=== PATIENT | female | born 1960 | race Caucasian/White ===

== ENCOUNTER → 2018-03-02 09:30 | Outpatient (CLI) | payer OTHER, SELFPAY ==
[2018-03-02 10:42] LABS: BUN Creatinine Ratio 15.6 (6-22); Calcium 9.4 mg/dL (8.4-10.2); Cholesterol 222 mg/dL (140-199); Estimated Glomerular Filt Rate > 60.0 mL/min (>60); Glucose 103 mg/dL (70-100); HDL Cholesterol 36 mg/dL (40-60); HEMOLYSIS < 15 (0-50); LDL Cholesterol Calculated 143 mg/dL (<100); Potassium 3.8 mmol/L (3.4-5.1); Sodium 142 mmol/L (137-145); Triglycerides 213 mg/dL (35-150)
== END ==
PROVIDERS: Family Provider Internal Medicine; PCP Internal Medicine; Visit Provider Internal Medicine
DX: Z00.00 Encounter for general adult medical examination without abnormal findings (principal)
CPT/HCPCS: 36415; 80048; 80061

== ENCOUNTER → 2019-01-23 12:57 | Outpatient (CLI) | payer OTHER, SELFPAY ==
--- NOTE | 2019-01-23 | DI.US.S_ITS ---
LIMITED ULTRASOUND OF LEFT BREAST AND AXILLA: 01/23/2019 CLINICAL: LEFT breast firmness. Comparison is made to exams dated: 01/23/2019 mammogram, 04/01/2017 mammogram, 02/05/2016 mammogram, 12/31/2014 mammogram, and 12/28/2013 mammogram - [facility]. Ultrasound of the left breast 11-1 o'clock, retroareolar, and axilla regions was performed. No abnormalities were seen sonographically in the left breast. A benign axillary lymph node was seen. IMPRESSION: NEGATIVE There is no sonographic evidence of malignancy. No sonographic or mammographic findings to explain patient's symptoms of firmness and pain. Clinical follow up for symptoms is recommended. Return to annual mammogram screening schedule is recommended. Findings and recommendations were conveyed to the patient. This exam was interpreted at Station ID: [id number]. Electronically Signed By: Kyra gusman/:01/23/2019 15:03:23 letter sent: Normal Exam Ultrasound BI-RADS: 1 Negative
--- NOTE | 2019-01-23 | DI.MG.S_ITS ---
BILATERAL DIGITAL DIAGNOSTIC MAMMOGRAM 3D/2D POST LUMPECTOMY: 01/23/2019 CLINICAL: Left breast pain. Comparison is made to exams dated: 04/01/2017 mammogram, 02/05/2016 mammogram, and 12/31/2014 mammogram - [facility]. There are scattered fibroglandular elements in both breasts. The lumpectomy bed with surgical clips in the upper outer left breast is involuting and the overlying skin is slightly retracting, expected changes. No new mass. The patient's area of firmness in the 11 o'clock mid depth has no mammographic correlate. NO suspicious findings in the retroareaolar area of pain. Stable ovoid nodule in the right breast, unchanged over multiple prior studies. No significant masses, calcifications, or other findings are seen in either breast. IMPRESSION: INCOMPLETE: NEEDS ADDITIONAL IMAGING EVALUATION Benign findings of left breast lumpectomy. No mammographic evidence of malignancy. No mammographic correlate to explain patient's symptoms. Further evaluation with ultrasound is recommended and was immediately performed following this study. This exam was interpreted at Station ID: [id number]. NOTE: For mammograms, a report in lay terms will be sent to the patient. Approximately 15% of breast malignancies will not be visualized mammographically. In the management of a palpable breast mass, a negative mammogram must not discourage biopsy of a clinically suspicious lesion. Electronically Signed By: Kyra gusman/:01/23/2019 14:47:59 ACR BI-RADS Category 0: Incomplete 3340F
== END ==
PROVIDERS: Family Provider Internal Medicine; PCP Internal Medicine; Visit Provider Internal Medicine
DX: R92.8 Other abnormal and inconclusive findings on diagnostic imaging of breast (principal); N64.4 Mastodynia
CPT/HCPCS: 76642; 77066; G0279

== ENCOUNTER → 2019-05-02 10:14 | Outpatient (CLI) | payer OTHER, SELFPAY ==
--- NOTE | 2019-05-02 | DI.RAD.S_ITS ---
PROCEDURE: XR KNEE LT 3V INDICATIONS: ARTHROPATHY TECHNIQUE: 3 views of the knee were acquired. COMPARISON: None. FINDINGS: Bones: No fractures or dislocations. No suspicious bony lesions. Soft tissues: No joint effusion. No suspicious soft tissue calcifications. IMPRESSION: Unremarkable radiographic examination of left knee. Dictated by: Wilver Xiong M.D. on 05/02/2019 at 12:07 Approved by: Wilver Xiong M.D. on 05/02/2019 at 12:07
--- NOTE | 2019-05-02 | DI.RAD.S_ITS ---
PROCEDURE: XR HAND LT MIN 3V INDICATIONS: ARTHROPATHY TECHNIQUE: 3 views of the hand(s) acquired. COMPARISON: None. FINDINGS: Bones: No fractures or dislocations. Mild osteophytic changes along radial aspect of left wrist and throughout interphalangeal joints are seen more prominent at first CMC joint. No gross bony erosive changes. Carpal bones are normally aligned. No suspicious bony lesions. Soft tissues: No suspicious soft tissue calcifications. 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 No bony erosive changes. No fracture or dislocation. Dictated by: Wilver Xiong M.D. on 05/02/2019 at 12:11 Approved by: Wilver Xiong M.D. on 05/02/2019 at 12:16
--- NOTE | 2019-05-02 | DI.RAD.S_ITS ---
PROCEDURE: XR HAND RT MIN 3V INDICATIONS: ARTHROPATHY TECHNIQUE: 3 views of the hand(s) acquired. COMPARISON: None. FINDINGS: Bones: No fractures or dislocations. Mild osteophytic changes along radial aspect of right wrist and hand are seen with joint space narrowing and subchondral sclerosis. Very mild second through fifth PIP and DIP joint space narrowing is also noted. No definite bony erosive changes. Carpal bones are normally aligned. No suspicious bony lesions. Soft tissues: No suspicious soft tissue calcifications. IMPRESSION: Mild osteoarthritic changes in right hand and wrist. No definite bony erosive changes. Dictated by: Wilver Xiong M.D. on 05/02/2019 at 12:07 Approved by: Wilver Xiong M.D. on 05/02/2019 at 12:08
--- NOTE | 2019-05-02 | DI.RAD.S_ITS ---
PROCEDURE: XR FOOT RT MIN 3V INDICATIONS: ARTHROPATHY TECHNIQUE: 3 views of the foot were acquired. COMPARISON: None. FINDINGS: Bones: Moderate hallux valgus is seen. Mild first MTP joint and first through fifth interphalangeal joint osteophytic changes are seen with joint space narrowing and subchondral sclerosis. No bony erosive changes. No fractures or dislocations. No suspicious bony lesions. Soft tissues: No tibiotalar joint effusion. Achilles tendon appears normal. IMPRESSION: Moderate hallux valgus and mild forefoot joint osteoarthritis. No fracture or dislocation. No bony erosive changes. Dictated by: Wilver Xiong M.D. on 05/02/2019 at 12:09 Approved by: Wilver Xiong M.D. on 05/02/2019 at 12:10
--- NOTE | 2019-05-02 | DI.RAD.S_ITS ---
PROCEDURE: XR FOOT LT MIN 3V INDICATIONS: ARTHROPATHY TECHNIQUE: 3 views of the foot were acquired. COMPARISON: None. FINDINGS: Bones: Moderate hallux valgus is seen. Moderate first MTP joint osteoarthritis and mild first through fifth interphalangeal joint osteoarthritis is seen. No gross bone erosive changes. No fractures or dislocations. No suspicious bony lesions. Soft tissues: No tibiotalar joint effusion. Achilles tendon appears normal. IMPRESSION: Moderate hallux valgus and mild to moderate forefoot osteoarthritis. No bony erosive changes. No fracture or dislocation. Dictated by: Wilver Xiong M.D. on 05/02/2019 at 12:10 Approved by: Wilver Xiong M.D. on 05/02/2019 at 12:11
--- NOTE | 2019-05-02 | DI.RAD.S_ITS ---
PROCEDURE: XR KNEE RT 3V INDICATIONS: ARTHROPATHY TECHNIQUE: 3 views of the knee were acquired. COMPARISON: None. FINDINGS: Bones: No fractures or dislocations. No suspicious bony lesions. Joint spaces are fairly well preserved for patient's age. Soft tissues: No joint effusion. No suspicious soft tissue calcifications. IMPRESSION: Unremarkable radiographic examination of right knee. Dictated by: Wilver Xiong M.D. on 05/02/2019 at 12:08 Approved by: Wilver Xiong M.D. on 05/02/2019 at 12:09
[2019-05-02 11:22] LABS: Add Manual Diff / Slide Review NO; Basophils Absolute Auto 100 /uL (0-100); Basophils Percent Auto 0.9 % (0-2); Eosinophils Absolute Auto 100 /uL (0-450); Eosinophils Percent Auto 1.8 % (2-4); Hematocrit 42.1 % (36-46); Hemoglobin 14.1 g/dL (12.0-16.0); Lymphocytes Absolute Auto 2400 /uL (1100-4500); Lymphocytes Percent Auto 30.7 % (25-40); Mean Corpuscular HGB Conc 33.6 % (30-36); Mean Corpuscular Hemoglobin 31.6 PG (26-34); Mean Corpuscular Volume 94.1 fL (80-100); Monocytes Absolute Auto 500 /uL (0-900); Monocytes Percent Auto 6.6 % (3-14); Neutrophils Absolute Auto 4600 /uL (1500-7000); Platelet Count 391 X10^3/uL (150-400); Red Blood Cell Count 4.47 X10^6/uL (4.0-5.2); Red Cell Distribution Width 13.8 % (11.6-14.8); White Blood Cell Count 7.7 X10^3/uL (4.5-11.0)
[2019-05-02 11:43] LABS: Erythrocyte Sedimentation Rate 30 MM/HR (0-20)
[2019-05-02 11:57] LABS: Alanine Aminotransferase 24 IU/L (9-52); Albumin 4.7 g/dL (3.5-5.0); Albumin Globulin Ratio 1.4 (1.0-2.8); Alkaline Phosphatase 103 U/L (38-126); Aspartate Aminotransferase 28 IU/L (14-36); Bilirubin Total 0.4 mg/dL (0.2-1.3); Blood Urea Nitrogen 14 mg/dL (7-17); C-Reactive Protein Quant 0.8 mg/dL (<1.0); Calcium 10.2 mg/dL (8.4-10.2); Carbon Dioxide 29 mmol/L (22-32); Chloride 102 mmol/L (98-107); Estimated Glomerular Filt Rate > 60.0 mL/min (>60); Globulin 3.3 g/dL (1.7-4.1); Glucose 97 mg/dL (70-100); HEMOLYSIS < 15 (0-50); Potassium 4.9 mmol/L (3.4-5.1); Sodium 142 mmol/L (137-145)
[2019-05-02 11:58] LABS: Rheumatoid Factor 10.4 IU/mL (<12.0)
[2019-05-07 10:42] LABS: CCP Antibodies IgG/IgA 3
== END ==
PROVIDERS: Family Provider Internal Medicine; PCP Internal Medicine; Visit Provider Internal Medicine Rheumatology
DX: M19.072 Primary osteoarthritis, left ankle and foot (principal); M19.071 Primary osteoarthritis, right ankle and foot; M20.12 Hallux valgus (acquired), left foot; M20.11 Hallux valgus (acquired), right foot; M18.12 Unilateral primary osteoarthritis of first carpometacarpal joint, left hand; M19.042 Primary osteoarthritis, left hand; M19.032 Primary osteoarthritis, left wrist
CPT/HCPCS: 36415; 73130; 73562; 73630; 80053; 83516; 84550; 85025; 85651; 86140; 86200; 86430

== ENCOUNTER → 2019-07-27 09:37 | Outpatient (CLI) | payer OTHER, SELFPAY ==
--- NOTE | 2019-07-27 | DI.MRI.S_ITS ---
PROCEDURE: MR FOOT RT WO/W CON INDICATIONS: Primary osteoarthritis. Right foot and lower extremity pain TECHNIQUE: Noncontrast sagittal T1 spin echo and T2 fast spin echo with fat saturation, long-axis T1 spin echo and T2 fast spin echo with fat saturation; short-axis T1 spin echo, proton density fast spin echo, and T2 fast spin echo with fat saturation through the forefoot. Post-contrast short axis, long axis, and sagittal T1 spin echo with fat saturation through the forefoot. COMPARISON: [facility], CR, XR FOOT LT MIN 3V, 05/02/2019, 10:40. [facility], MR, MR FOOT LT WO/W CON, 07/27/2019, 9:52. FINDINGS: Image quality: Excellent. Bones and joints: Moderate hallux valgus is seen. Mild to moderate first MTP joint osteoarthritis is seen. Mild osteoarthritic changes also noted in first through fifth interphalangeal joints with joint space narrowing and subchondral sclerosis. No marrow edema. No fracture or dislocation. Osteoarthritic changes also noted between first metatarsal head and sesamoid bones. There are T2 hyperintense areas involving medial cortex of first metatarsal head as well as plantar periphery of first metatarsal head, shows mild contrast enhancement in these areas concerning for erosive changes in first metatarsal head. No other area of bony erosive changes are seen. No stress fracture is noted. Soft tissues: No suspicious soft tissue enhancement. The visualized plantar foot muscles demonstrate normal signal and bulk. Visualized flexor and extensor tendons appear intact, without tenosynovitis. The distal insertions of the peroneus brevis and longus tendons appear intact. The principal Lisfranc ligament appears intact. No soft tissue ganglion cysts or bursal fluid collections. Sagittal images demonstrate no evidence for plantar plate tears. IMPRESSION: 1. Moderate hallux valgus and mild to moderate first MTP joint osteoarthritis. Mild first through fifth interphalangeal joint osteoarthritis. No fracture or dislocation. 2. Suggestion of subtle erosive changes involving plantar and medial periphery of first metatarsal head, no adjacent soft tissue mass or fluid. 3. No evidence of tenosynovitis in forefoot tendons. No area of abnormal soft tissue enhancement. Dictated by: Wilver Xiong M.D. on 07/27/2019 at 14:21 Approved by: Wilver Xiong M.D. on 07/27/2019 at 14:28
--- NOTE | 2019-07-27 | DI.MRI.S_ITS ---
PROCEDURE: MR FOOT LT WO/W CON INDICATIONS: OSTEOARTHIRTIS TECHNIQUE: Noncontrast sagittal T1 spin echo and T2 fast spin echo with fat saturation, long-axis T1 spin echo and T2 fast spin echo with fat saturation; short-axis T1 spin echo, proton density fast spin echo, and T2 fast spin echo with fat saturation through the forefoot. Post-contrast short axis, long axis, and sagittal T1 spin echo with fat saturation through the forefoot. COMPARISON: [facility], CR, XR FOOT LT MIN 3V, 05/02/2019, 10:40. FINDINGS: Image quality: Excellent. Bones and joints: Mild to moderate hallux valgus is seen. Mild to moderate osteoarthritic changes throughout forefoot joints are also noted most prominent involving first MTP joint. T2 hyperintense signal over medial cortex of first metatarsal head is seen with mild contrast enhancement and most consistent with erosive changes in this area. No other area of abnormal intraosseous enhancement. No marrow edema. No metatarsal stress fracture. The sesamoid bones appear in expected positions, without internal edema. Soft tissues: No suspicious soft tissue enhancement. The visualized plantar foot muscles demonstrate normal signal and bulk. Visualized flexor and extensor tendons appear intact, without tenosynovitis. The distal insertions of the peroneus brevis and longus tendons appear intact. The principal Lisfranc ligament appears intact. No soft tissue ganglion cysts or bursal fluid collections. Sagittal images demonstrate no evidence for plantar plate tears. IMPRESSION: 1. Mild to moderate hallux valgus and first MTP joint osteoarthritis. Mild osteoarthritis throughout the interphalangeal joints. Suggestion of subtle bony erosion involving medial cortex of first metatarsal head. No other area of bone erosion is seen. 2. No abnormal soft tissue enhancement or fluid collection. No signs of tenosynovitis is seen in flexor and extensor tendons. Dictated by: Wilver Xiong M.D. on 07/27/2019 at 14:13 Approved by: Wilver Xiong M.D. on 07/27/2019 at 14:19
== END ==
PROVIDERS: Family Provider Internal Medicine; PCP Internal Medicine; Visit Provider Internal Medicine Rheumatology
DX: M19.072 Primary osteoarthritis, left ankle and foot (principal); M19.071 Primary osteoarthritis, right ankle and foot; M20.12 Hallux valgus (acquired), left foot; M20.11 Hallux valgus (acquired), right foot
CPT/HCPCS: 73720; A9579

== ENCOUNTER → 2019-08-01 15:51 | Outpatient (ROUT) | payer OTHER, SELFPAY ==
[2019-08-01 16:19] LABS: BUN Creatinine Ratio 16.3 (6-22); Blood Urea Nitrogen 13 mg/dL (7-17); Calcium 10.1 mg/dL (8.4-10.2); Carbon Dioxide 30 mmol/L (22-32); Chloride 103 mmol/L (98-107); Estimated Glomerular Filt Rate > 60.0 mL/min (>60); Glucose 87 mg/dL (70-100); HEMOLYSIS < 15 (0-50); Potassium 4.4 mmol/L (3.4-5.1); Sodium 140 mmol/L (137-145)
[2019-08-01 17:34] LABS: TSH w/ Reflex to FT4 3.56 uIU/mL (0.47-4.68)
== END ==
PROVIDERS: Family Provider Internal Medicine; PCP Internal Medicine; Visit Provider Internal Medicine
DX: R07.9 Chest pain, unspecified (principal)
CPT/HCPCS: 80048; 84443

== ENCOUNTER → 2020-06-11 11:53 | Outpatient (CLI) | payer OTHER, SELFPAY ==
--- NOTE | 2020-06-11 12:03 | DI.MG.S_ITS ---
Patient Name: JACINTA BARNETT date: 1960 Sex: F Attending Physician: Kd Indications: Date: 06/11/2020 11:56 At the request of: JENNIFER CARBAJAL Procedure: MM screening mammo BI BILATERAL DIGITAL SCREENING MAMMOGRAM 3D/2D WITH CAD POST LUMPECTOMY: 06/11/2020 CLINICAL: Routine screening. Breast cancer. Family history of breast cancer. Comparison is made to exams dated: 01/23/2019 mammogram, 04/01/2017 mammogram, 02/05/2016 mammogram, and 12/31/2014 mammogram - [facility]. There are scattered fibroglandular elements in both breasts. Current study was also evaluated with a Computer Aided Detection (CAD) system. There is a benign mass in the right breast. There also are benign post operative findings and biopsy clip in the left breast. No significant masses, calcifications, or other findings are seen in either breast. There has been no significant interval change. IMPRESSION: BENIGN There is no mammographic evidence of malignancy. A 1 year screening mammogram is recommended. This exam was interpreted at Station ID: [id number]. NOTE: For mammograms, a report in lay terms will be sent to the patient. Approximately 15% of breast malignancies will not be visualized mammographically. In the management of a palpable breast mass, a negative mammogram must not discourage biopsy of a clinically suspicious lesion. Electronically Signed By: Abhinav Daly M.D. aty/:06/11/2020 12:33:58 letter sent: Normal Exam ACR BI-RADS Category 2: Benign Finding(s) 3342F
== END ==
PROVIDERS: Family Provider Internal Medicine; PCP Internal Medicine; Referring Provider Internal Medicine; Visit Provider Internal Medicine
DX: Z12.31 Encounter for screening mammogram for malignant neoplasm of breast (principal); Z85.3 Personal history of malignant neoplasm of breast; Z80.3 Family history of malignant neoplasm of breast
CPT/HCPCS: 77063; 77067

== ENCOUNTER → 2020-08-18 12:50 | Outpatient (CLI) | payer OTHER, SELFPAY ==
[2020-08-18 14:29] LABS: Alanine Aminotransferase 25 IU/L (<35); Albumin 4.6 g/dL (3.5-5.0); Albumin Globulin Ratio 1.3 (1.0-2.8); Alkaline Phosphatase 98 U/L (38-126); Aspartate Aminotransferase 32 IU/L (14-36); Bilirubin Total 0.5 mg/dL (0.2-1.3); Blood Urea Nitrogen 13 mg/dL (7-17); C-Reactive Protein Quant 0.6 mg/dL (<1.0); Calcium 9.8 mg/dL (8.4-10.2); Carbon Dioxide 30 mmol/L (22-32); Chloride 104 mmol/L (98-107); Estimated Glomerular Filt Rate > 60.0 mL/min (>60); Globulin 3.6 g/dL (1.7-4.1); Glucose 90 mg/dL (70-100); HEMOLYSIS < 15 (0-50); Potassium 3.7 mmol/L (3.4-5.1); Sodium 140 mmol/L (137-145); Total Protein 8.2 g/dL (6.3-8.2)
[2020-08-18 14:37] LABS: Erythrocyte Sedimentation Rate 27 MM/HR (0-20)
[2020-08-18 14:40] LABS: Add Manual Diff / Slide Review NO; Basophils Absolute Auto 100 /uL (0-100); Basophils Percent Auto 1.1 % (0-2); Eosinophils Absolute Auto 200 /uL (0-450); Eosinophils Percent Auto 1.7 % (2-4); Hematocrit 41.7 % (36-46); Hemoglobin 14.1 g/dL (12.0-16.0); Lymphocytes Absolute Auto 2800 /uL (1100-4500); Lymphocytes Percent Auto 30.4 % (25-40); Mean Corpuscular HGB Conc 33.9 % (30-36); Mean Corpuscular Hemoglobin 31.7 PG (26-34); Mean Corpuscular Volume 93.5 fL (80-100); Monocytes Absolute Auto 500 /uL (0-900); Monocytes Percent Auto 5.5 % (3-14); Neutrophils Absolute Auto 5600 /uL (1500-7000); Neutrophils Percent Auto 61.3 % (50-75); Platelet Count 375 X10^3/uL (150-400); Red Blood Cell Count 4.46 X10^6/uL (4.0-5.2); Red Cell Distribution Width 13.6 % (11.6-14.8); White Blood Cell Count 9.1 X10^3/uL (4.5-11.0)
[2020-08-19 07:17] LABS: Hepatitis B Core AB w/Reflex Negative (Negative); Hepatitis B Surf AB Quant <3.1 mIU/mL (Immunity>9.9)
[2020-08-20 00:18] LABS: QuantiFERON Mitogen Value 9.84 IU/mL (.); QuantiFERON Nil Value 0.14 IU/mL (.); QuantiFERON TB Gold Plus Negative (Negative); QuantiFERON TB1 Ag Value 0.15 IU/mL (.); QuantiFERON TB2 Ag Value 0.14 IU/mL (.)
[2020-08-21 11:13] LABS: Hepatitis Be Antibody Negative (Negative)
[2020-08-21 17:17] LABS: Hepatitis B Surface Antigen NEGATIVE s/c (NEGATIVE)
[2020-08-21 17:30] LABS: Hep C Virus Ab w/Reflex Quant REACTIVE s/c (NEGATIVE)
== END ==
PROVIDERS: Family Provider Internal Medicine; PCP Internal Medicine; Referring Provider Internal Medicine Rheumatology; Visit Provider Internal Medicine Rheumatology
DX: L40.50 Arthropathic psoriasis, unspecified (principal)
CPT/HCPCS: 36415; 80053; 85025; 85651; 86140; 86480; 86704; 86706; 86707; 86803; 87340; 87522

== ENCOUNTER → 2020-08-25 08:47 | Outpatient (CLI) | payer OTHER, SELFPAY ==
[2020-08-25 14:45] LABS: Cholesterol 213 mg/dL (140-199); HDL Cholesterol 31 mg/dL (40-60); LDL Cholesterol Calculated 114 mg/dL (<100); Triglycerides 338 mg/dL (35-150)
== END ==
PROVIDERS: Family Provider Internal Medicine; PCP Internal Medicine; Referring Provider Internal Medicine; Visit Provider Internal Medicine
DX: E78.2 Mixed hyperlipidemia (principal)
CPT/HCPCS: 36415; 80061

== ENCOUNTER → 2021-05-06 10:07 | Outpatient (CLI) | payer OTHER, SELFPAY | PROVIDERS: Family Provider Internal Medicine; PCP Internal Medicine; Referring Provider Otolaryngology; Visit Provider Otolaryngology | DX: Z01.810 Encounter for preprocedural cardiovascular examination (principal) | CPT/HCPCS: 93005; 93010 ==

== ENCOUNTER → 2021-12-03 16:04 | Outpatient (CLI) | payer OTHER, SELFPAY ==
--- NOTE | 2021-12-03 16:06 | DI.MG.S_ITS ---
BILATERAL DIGITAL SCREENING MAMMOGRAM 3D/2D WITH CAD: 12/03/2021 CLINICAL: Routine screening. Personal history of left breast cancer. Family history of breast cancer. Comparison is made to exams dated: 06/11/2020 mammogram, 01/23/2019 mammogram, 04/01/2017 mammogram, 02/05/2016 mammogram, and 12/31/2014 mammogram - [facility]. There are scattered fibroglandular elements in both breasts. Current study was also evaluated with a Computer Aided Detection (CAD) system. The left breast has post-operative findings. There is a biopsy site marker on the left breast. There is a possible new 0.6 cm oval focal asymmetry in the right breast at 5 o'clock anterior depth. No other significant masses, calcifications, or other findings are seen in either breast. IMPRESSION: INCOMPLETE: NEEDS ADDITIONAL IMAGING EVALUATION The possible new 0.6 cm oval focal asymmetry in the right breast resembles a tortuous vessel, duct, or cyst and is indeterminate. Additional views with possible ultrasound are recommended. This exam was interpreted at Station ID: [id number]. NOTE: For mammograms, a report in lay terms will be sent to the patient. Approximately 15% of breast malignancies will not be visualized mammographically. In the management of a palpable breast mass, a negative mammogram must not discourage biopsy of a clinically suspicious lesion. Electronically Signed By: Abhinav Daly M.D. aty/:12/04/2021 07:25:51 letter sent: Additional Imaging Needed ACR BI-RADS Category 0: Incomplete 3340F
== END ==
PROVIDERS: Family Provider Internal Medicine; PCP Internal Medicine; Referring Provider Internal Medicine; Visit Provider Internal Medicine
DX: Z12.31 Encounter for screening mammogram for malignant neoplasm of breast (principal); Z85.3 Personal history of malignant neoplasm of breast; Z80.3 Family history of malignant neoplasm of breast
CPT/HCPCS: 77063; 77067

== ENCOUNTER → 2022-01-07 13:18 | Outpatient (CLI) | payer BC, SELFPAY ==
--- NOTE | 2022-01-07 13:23 | DI.US.S_ITS ---
LIMITED ULTRASOUND OF RIGHT BREAST: 01/07/2022 CLINICAL: Patient returns today to evaluate a focal asymmetry in the right breast. Comparison is made to exams dated: 01/07/2022 mammogram, 12/03/2021 mammogram, 06/11/2020 mammogram, and 04/01/2017 mammogram - [facility]. Color flow and real-time ultrasound of the right breast 5 o'clock region were performed. Carmichael scale images of the real-time examination were reviewed. There is a 0.4 cm x 0.4 cm x 0.2 cm oval cyst in the right breast at 5 o'clock anterior depth 2 cm from the nipple. This oval cyst displays internal echoes. This correlates with mammography findings. Color flow imaging demonstrates that there is no vascularity present. There is an adjacent prominent duct. No intraductal mass. IMPRESSION: PROBABLY BENIGN The 0.4 cm oval cyst in the right breast is consistent with a complicated cyst and is probably benign. A follow-up ultrasound in 6 months is recommended to demonstrate stability. Exam findings were conveyed to the patient. This exam was interpreted at Station ID: [id number]. Electronically Signed By: Gio Desai M.D. slc/:01/07/2022 14:28:17 letter sent: Followup Recommended Ultrasound BI-RADS: 3 Probably benign
--- NOTE | 2022-01-07 13:23 | DI.MG.S_ITS ---
UNILATERAL RIGHT DIGITAL DIAGNOSTIC MAMMOGRAM 3D/2D WITH ADDITIONAL VIEWS: 01/07/2022 CLINICAL: Additional evaluation requested from prior study. Comparison is made to exams dated: 12/03/2021 mammogram, 06/11/2020 mammogram, 01/23/2019 mammogram, 04/01/2017 mammogram, and 02/05/2016 mammogram - [facility]. There are scattered fibroglandular elements in right breast. There is a 0.6 cm oval focal asymmetry with an obscured margin in the right breast at 5 o'clock anterior depth. No other significant masses or calcifications are seen in the breast. IMPRESSION: INCOMPLETE: NEEDS ADDITIONAL IMAGING EVALUATION The 0.6 cm oval focal asymmetry in the right breast resembles a cyst and is indeterminate. A targeted ultrasound is recommended and will immediately follow. This exam was interpreted at Station ID: [id number]. NOTE: For mammograms, a report in lay terms will be sent to the patient. Approximately 15% of breast malignancies will not be visualized mammographically. In the management of a palpable breast mass, a negative mammogram must not discourage biopsy of a clinically suspicious lesion. Electronically Signed By: Gio Desai M.D. slc/:01/07/2022 13:45:24 ACR BI-RADS Category 0: Incomplete 3340F
== END ==
PROVIDERS: Family Provider Internal Medicine; PCP Internal Medicine; Referring Provider Internal Medicine; Visit Provider Internal Medicine
DX: R92.8 Other abnormal and inconclusive findings on diagnostic imaging of breast (principal); N60.01 Solitary cyst of right breast
CPT/HCPCS: 76642; 77065; G0279

== ENCOUNTER → 2022-04-27 07:21 | Outpatient (CLI) | payer BC, OTHER, SELFPAY | PROVIDERS: Family Provider Internal Medicine; PCP Internal Medicine; Visit Provider Physician Assistant | DX: N39.0 Urinary tract infection, site not specified (principal) | CPT/HCPCS: 87077; 87086; 87186 ==

== ENCOUNTER → 2022-05-18 09:02 | Outpatient (CLI) | payer BC, OTHER, SELFPAY | PROVIDERS: Family Provider Internal Medicine; PCP Internal Medicine; Visit Provider Physician Assistant | DX: N39.0 Urinary tract infection, site not specified (principal) | CPT/HCPCS: 87077; 87086; 87186 ==

== ENCOUNTER → 2022-06-16 07:59 | Outpatient (CLI) | payer BC, OTHER, SELFPAY | PROVIDERS: PCP Internal Medicine; Visit Provider Physician Assistant | DX: N39.0 Urinary tract infection, site not specified (principal) | CPT/HCPCS: 87077; 87086; 87186 ==

== ENCOUNTER → 2022-07-09 15:50 | Outpatient (CLI) | payer BC, OTHER, SELFPAY | PROVIDERS: PCP Internal Medicine; Visit Provider Nurse Practitioner Family | DX: R10.30 Lower abdominal pain, unspecified (principal) | CPT/HCPCS: 87086 ==

== ENCOUNTER → 2022-09-01 08:54 | Outpatient (CLI) | payer BC, OTHER, SELFPAY | PROVIDERS: PCP Internal Medicine; Visit Provider Nurse Practitioner Family | DX: R30.0 Dysuria (principal) | CPT/HCPCS: 87077; 87086; 87186; 87210 ==

== ENCOUNTER → 2023-02-06 10:37 | Outpatient (CLI) | payer OTHER, SELFPAY | PROVIDERS: PCP Internal Medicine; Visit Provider Physician Assistant | DX: R30.0 Dysuria (principal) | CPT/HCPCS: 87086 ==

== ENCOUNTER → 2023-07-31 16:25 | Outpatient (CLI) | payer OTHER, SELFPAY ==
--- NOTE | 2023-07-31 16:27 | DI.RAD.S_ITS ---
PROCEDURE: XR SHOULDER RT MIN 2V INDICATIONS: Right shoulder injury TECHNIQUE: 3 views of the shoulder were acquired. COMPARISON: None. FINDINGS: Bones: No fractures or dislocations. No suspicious bony lesions. Visualized ribs appear intact. Degenerative changes are seen, including involving the acromioclavicular joint. Soft tissues: No suspicious soft tissue calcifications. The visualized lung demonstrates an unremarkable appearance. IMPRESSION: No acute plain film abnormality is seen. If it would be helpful for clinical management decision making, please consider a dedicated, scheduled shoulder MRI for further evaluation (assuming that there is no contraindication). Dictated by: Rogers Atkins M.D. on 07/31/2023 at 16:07 Approved by: Rogers Atkins M.D. on 07/31/2023 at 16:08
== END ==
PROVIDERS: PCP Internal Medicine; Referring Provider Registered Nurse; Visit Provider Registered Nurse
DX: M25.511 Pain in right shoulder (principal)
CPT/HCPCS: 73030

== ENCOUNTER → 2023-08-16 07:40 | Outpatient (CLI) | payer OTHER, SELFPAY ==
[2023-08-16 09:10] LABS: Add Manual Diff / Slide Review NO; Basophils Absolute Auto 100 /uL (0-100); Basophils Percent Auto 1.3 % (0-2); Eosinophils Absolute Auto 200 /uL (0-450); Eosinophils Percent Auto 2.1 % (2-4); Hematocrit 39.4 % (36-46); Hemoglobin 13.6 g/dL (12.0-16.0); Lymphocytes Absolute Auto 2100 /uL (1100-4500); Lymphocytes Percent Auto 25.6 % (25-40); Mean Corpuscular HGB Conc 34.6 % (30-36); Mean Corpuscular Hemoglobin 32.6 PG (26-34); Mean Corpuscular Volume 94.3 fL (80-100); Monocytes Absolute Auto 500 /uL (0-900); Monocytes Percent Auto 6.5 % (3-14); Neutrophils Absolute Auto 5400 /uL (1500-7000); Neutrophils Percent Auto 64.5 % (50-75); Platelet Count 352 X10^3/uL (150-400); Red Blood Cell Count 4.18 X10^6/uL (4.0-5.2); Red Cell Distribution Width 13.5 % (11.6-14.8); White Blood Cell Count 8.3 X10^3/uL (4.5-11.0)
[2023-08-16 09:27] LABS: Alanine Aminotransferase 20 IU/L (<35); Albumin 4.2 g/dL (3.5-5.0); Albumin Globulin Ratio 1.4 (1.0-2.8); Alkaline Phosphatase 78 U/L (38-126); Aspartate Aminotransferase 27 IU/L (14-36); BUN Creatinine Ratio 14.8 (6-22); Bilirubin Total 0.3 mg/dL (0.2-1.3); Blood Urea Nitrogen 12 mg/dL (7-17); C-Reactive Protein Quant 1.1 mg/dL (<1.0); Carbon Dioxide 26 mmol/L (22-32); Chloride 104 mmol/L (98-107); Estimated Glomerular Filt Rate > 60 mL/min (>60); Gamma Glutamyl Transpeptidase 27 U/L (12-43); Glucose 105 mg/dL (80-110); HEMOLYSIS < 15 (0-50); Potassium 4.6 mmol/L (3.4-5.1); Sodium 138 mmol/L (137-145); Total Protein 7.2 g/dL (6.3-8.2)
[2023-08-16 09:30] LABS: Rheumatoid Factor < 8.6 IU/mL (<12.0)
[2023-08-16 09:35] LABS: Erythrocyte Sedimentation Rate 30 MM/HR (0-20)
[2023-08-16 09:51] LABS: TSH w/ Reflex to FT4 2.88 uIU/mL (0.47-4.68)
[2023-08-16 10:11] LABS: Hep C Virus Ab w/Reflex Quant REACTIVE s/c (NEGATIVE)
[2023-08-17 21:40] LABS: Cholesterol HDL Ratio 6.4 ratio (0.0-4.4); Cholesterol,Total 231 mg/dL (100-199); HDL Cholesterol 36 mg/dL (>39); LDL Cholesterol Cal 113 mg/dL (0-99); Triglycerides 471 mg/dL (0-149); VLDL Cholesterol Cal 82 mg/dL (5-40)
[2023-08-18 23:49] LABS: CCP Antibodies IgG/IgA 1 units (0-19)
[2023-08-19 18:25] LABS: ANA Screen, IFA Negative (.)
== END ==
PROVIDERS: PCP Nurse Practitioner Family; Referring Provider Nurse Practitioner Family; Visit Provider Nurse Practitioner Family
DX: K92.1 Melena (principal); R03.0 Elevated blood-pressure reading, without diagnosis of hypertension; Z13.220 Encounter for screening for lipoid disorders; F10.10 Alcohol abuse, uncomplicated; L40.50 Arthropathic psoriasis, unspecified; Z11.59 Encounter for screening for other viral diseases
CPT/HCPCS: 36415; 80053; 80061; 82977; 84443; 85025; 85651; 86038; 86140; 86200; 86430; 86803; 87522

== ENCOUNTER → 2023-09-06 09:52 | Outpatient (CLI) | payer OTHER, SELFPAY ==
--- NOTE | 2023-09-06 09:53 | DI.MG.S_ITS ---
BILATERAL DIGITAL DIAGNOSTIC MAMMOGRAM 3D/2D: 09/06/2023 CLINICAL: Short term follow up of the right breast, due for bilateral imaging. Comparison is made to exams dated: 01/07/2022 mammogram, 12/03/2021 mammogram, 06/11/2020 mammogram, 01/23/2019 mammogram, 04/01/2017 mammogram, and 01/07/2022 ultrasound - [facility]. There are scattered areas of fibroglandular density in both breasts (category b / 25%-50% glandular tissue). There are stable benign post operative changes in the left breast. There is a 0.6 cm oval focal asymmetry with an obscured margin in the right breast at 5 o'clock in the retroareolar region. This is less prominent. No other significant masses, calcifications, or other findings are seen in either breast. IMPRESSION: INCOMPLETE: NEEDS ADDITIONAL IMAGING EVALUATION The 0.6 cm oval focal asymmetry in the right breast is indeterminate. An ultrasound is recommended. This exam was interpreted at Station ID: [id number]. NOTE: For mammograms, a report in lay terms will be sent to the patient. Approximately 15% of breast malignancies will not be visualized mammographically. In the management of a palpable breast mass, a negative mammogram must not discourage biopsy of a clinically suspicious lesion. Electronically Signed By: Jeremias lafleur/kaya:09/06/2023 11:57:43 ACR BI-RADS Category 0: Incomplete 3340F
--- NOTE | 2023-09-06 09:53 | DI.MRI.S_ITS ---
PROCEDURE: MR SHOULDER RT WO CON INDICATIONS: LATE FOLLOW UP RIGHT BREAST,RIGHT SHOULDER PAIN TECHNIQUE: Noncontrast oblique coronal T2 fast spin echo with fat saturation, oblique sagittal T1 spin echo and T2 fast spin echo with fat saturation, axial T1 spin echo and T2 fast spin echo with fat saturation through the shoulder. COMPARISON: None. FINDINGS: Image quality: Excellent. Rotator cuff: Full-thickness rupture involving distal supraspinatus approximately 1 cm from its insertion on the humeral head is seen with up to 8 mm medial retraction of torn tendon fibers and a fluid-filled gap measures up to 9 mm in AP dimension. Low to moderate grade articular surface partial-thickness tear involving rest of the distal supraspinatus at its insertion on the humeral head is seen extending to musculotendinous junction. Distal infraspinatus tendinosis and low-grade articular surface partial-thickness tear is seen. Low-grade intrasubstance partial-thickness tear involving distal subscapularis is noted. Sagittal images demonstrate mild to moderate supraspinatus muscle atrophy. Bones and bursae: No bone marrow contusions or fractures. Moderate acromioclavicular joint osteoarthritic changes are seen with joint space narrowing, subchondral sclerosis and downward osteophyte formation depressing on musculotendinous junction of supraspinatus. The acromion demonstrates conventional anatomy, without an os acromiale. Small to moderate amount of joint effusion and subacromial subdeltoid bursal fluid is seen, no gross loose bodies. Capsule and soft tissues: Subtle fraying and signal abnormality involving superior anterior labrum at 12 to 1 o'clock position is seen suggestive of subtle superior anterior labral tear. The long head of the biceps tendon appears thickened intra-articularly. The rotator interval appears normal, without fibrosis. The coracohumeral ligament is normal in thickness. IMPRESSION: 1. Focal full-thickness rupture involving anterior fibers of distal supraspinatus approximately 1 cm from its insertion on the humeral head with up to 8 mm medial retraction of torn tendon fibers and a fluid-filled gap measures up to 9 mm in AP dimension. Low to moderate grade articular surface partial-thickness tear involving rest of the supraspinatus extending to musculotendinous junction. Mild to moderate supraspinatus muscle atrophy. 2. Low-grade articular surface partial-thickness tear involving distal infraspinatus. Low-grade intrasubstance partial-thickness tear involving distal subscapularis. 3. Moderate acromioclavicular joint osteoarthritis. No fracture or dislocation. Small to moderate amount of joint effusion and subacromial subdeltoid bursal fluid. 4. Suggestion of very subtle superior anterior labral tear at 12 to 1 o'clock position. 5. Proximal intra-articular portion of long head of biceps tendinosis. Dictated by: Wilver Xiong M.D. on 09/06/2023 at 15:49 Approved by: Wilver Xiong M.D. on 09/06/2023 at 15:52
--- NOTE | 2023-09-06 09:53 | DI.US.S_ITS ---
LIMITED ULTRASOUND OF RIGHT BREAST: 09/06/2023 CLINICAL: Patient returns today to evaluate a focal asymmetry in the right breast. Comparison is made to exams dated: 09/06/2023 mammogram, 01/07/2022 ultrasound, 01/07/2022 mammogram, 12/03/2021 mammogram, 06/11/2020 mammogram, and 01/23/2019 mammogram - [facility]. Color flow ultrasound of the right breast 5 o'clock region was performed. Carmichael scale images of the real-time examination were reviewed. There is a 0.4 cm x 0.4 cm x 0.2 cm oval cyst in the right breast at 5 o'clock anterior depth 2 cm from the nipple. This oval cyst displays internal echoes. This abnormality is not significantly changed and correlates with mammography findings. Color flow imaging demonstrates that there is no vascularity present. IMPRESSION: PROBABLY BENIGN The 0.4 cm x 0.4 cm x 0.2 cm oval cyst in the right breast is consistent with a complicated cyst and is probably benign. A follow-up right ultrasound in 6 months is recommended to demonstrate stability. This exam was interpreted at Station ID: [id number]. Electronically Signed By: Jeremias lafleur/kaya:09/06/2023 11:59:45 letter sent: Followup Recommended Ultrasound BI-RADS: 3 Probably benign
--- NOTE | 2023-09-06 10:01 | DI.RAD.S_ITS ---
PROCEDURE: XR LUMBAR SPINE 2-3V INDICATIONS: back pain TECHNIQUE: 3 views of the lumbar spine were acquired. COMPARISON: [facility], , L-SPINE 2-3 VIEWS, 02/28/2015, 16:59. FINDINGS: Bones: 5 [id number] vertebrae are present. There is normal bony alignment. No vertebral body compression fractures. No suspicious bony lesions. Mild degenerative disc disease at L3-L4 and L4-L5. Soft tissues: Overlying bowel gas pattern is normal. No suspicious soft tissue calcifications. IMPRESSION: No acute bony abnormality. Mild degenerative disc disease. Dictated by: Noe No M.D. on 09/06/2023 at 12:20 Approved by: Noe No M.D. on 09/06/2023 at 12:21
--- NOTE | 2023-09-06 10:01 | DI.RAD.S_ITS ---
PROCEDURE: XR THORACIC SPINE 3V INDICATIONS: LATE FOLLOW UP RIGHT BREAST,RIGHT SHOULDER PAIN TECHNIQUE: 3 views of the thoracic spine were acquired. COMPARISON: None. FINDINGS: Bones: No fractures or dislocations. No suspicious bony lesions. 12 pairs of ribs are noted, and appear intact where visualized. Minimal dextrocurvature. Soft tissues: No paravertebral stripe thickening. IMPRESSION: No acute bony abnormality. Dictated by: Noe No M.D. on 09/06/2023 at 12:21 Approved by: Noe No M.D. on 09/06/2023 at 12:22
--- NOTE | 2023-09-06 10:01 | DI.RAD.S_ITS ---
PROCEDURE: XR CERVICAL SPINE 2V OR 3V INDICATIONS: neck pain TECHNIQUE: 3 view(s) of the cervical spine were acquired. COMPARISON: None. FINDINGS: Bones: No fractures or dislocations to the T1 level. The lateral masses of C1 appear intact on the odontoid view. No suspicious bony lesions. Cervical spondylosis with severe disc height loss and uncovertebral joint osteophytes at C5-C6 and C6-C7. Multilevel facet arthropathy is also present. Soft tissues: No prevertebral soft tissue swelling. IMPRESSION: Cervical spondylosis. Dictated by: Noe No M.D. on 09/06/2023 at 12:19 Approved by: Noe No M.D. on 09/06/2023 at 12:20
== END ==
PROVIDERS: PCP Nurse Practitioner Family; Referring Provider Nurse Practitioner Family; Visit Provider Nurse Practitioner Family
DX: R92.8 Other abnormal and inconclusive findings on diagnostic imaging of breast (principal); N60.01 Solitary cyst of right breast; N64.4 Mastodynia; M75.121 Complete rotator cuff tear or rupture of right shoulder, not specified as traumatic; M19.011 Primary osteoarthritis, right shoulder; M25.511 Pain in right shoulder; M47.812 Spondylosis without myelopathy or radiculopathy, cervical region; M54.2 Cervicalgia; M53.3 Sacrococcygeal disorders, not elsewhere classified; M51.36 Other intervertebral disc degeneration, lumbar region
CPT/HCPCS: 72040; 72072; 72100; 73221; 76642; 77066; G0279

== ENCOUNTER 2023-11-01 11:55 | Day surgery (SDC) | payer OTHER, SELFPAY ==
[2023-11-01 12:19] VITALS: BP 121/73; PULSE 90; RESP 16; TEMP 36.2; O2SAT 99; BMI 24.0
[2023-11-01] MEDS: LACTATED RINGERS 1,000 ML 42 ML IV (12:33)
--- NOTE | 2023-11-01 12:44 | P.HP_ITS ---
History of Present Illness History of Present Illness Date Patient Seen: 11/01/23 Time Patient Seen: 12:44 Chief complaint: EGD/Colonoscopy Narrative: 63-year-old woman with melena here for diagnostic EGD and colonoscopy. FORMERLY [facility], [facility] Medical History Recurrent postcoital urinary tract infection Family History Mother Hypertension Heart disease Breast cancer Father Thyroid cancer Social History marital status: unknown household members: none Smoking Status: Current every day smoker alcohol intake: current substance use type: does not use Meds Home Medications and Allergies Home Medications Medication Instructions Recorded Confirmed Type omeprazole 20 mg capsule,delayed 20 mg PO BID #30 caps 02/23/18 11/01/23 Rx release cholecalciferol (vitamin D3) PO DAILY 08/25/23 08/25/23 History Allergies Allergy/AdvReac Type Severity Reaction Status Date / Time codeine Allergy Mild ITCH, RASH Verified 11/01/23 12:16 hydrocodone Allergy Mild UNABLE TO Verified 11/01/23 12:16 SLEEP hydromorphone Allergy Mild RACE RED Verified 11/01/23 12:16 Penicillins Allergy Mild PT DENIES Verified 11/01/23 12:16 Exam Vital Signs (past 8 hours): - 11/01/23 12:19 Temperature 97.2 F L Pulse Rate 90 Respiratory Rate 16 Blood Pressure 121/73 Pulse Oximetry 99 Oxygen Delivery Method Room Air Oxygen Delivery Method Room Air Narrative Exam Narrative: General adult woman alert oriented no acute distress Chest nonlabored respiration Extremities warm well perfused Assessment & Plan Assessment and plan (1) GI bleed: Qualifiers: GI bleed type/associated pathology: unspecified gastrointestinal hemorrhage type Qualified Code(s): K92.2 - Gastrointestinal hemorrhage, unspecified Status: Acute Assessment & Plan narrative: Diagnostic esophagoduodenoscopy and colonoscopy Technical details were discussed. Risks, benefits, alternatives explained. Risks including but not limited to myocardial infarction, aspiration, bleeding, pain, missed lesion, incomplete examination, need for further radiographic studies, intestinal injury, and need for major abdominal surgery were discussed. All questions were answered to their satisfaction, and they are in agreement with this plan.
--- NOTE | 2023-11-01 12:55 | PM.OP.EC ---
Operative Date/Time/Diagnoses Date of procedure: 11/01/23 Time of procedure: 12:55 Pre-op diagnosis: GI bleed Procedure & Clinicians Study performed: Diagnostic esophagoduodenoscopy and colonoscopy Same procedure as scheduled: Yes Indications: Recent GI bleed Surgeon: Oli Small Procedure Notes Procedure in detail: The history and physical was performed/updated and the patient is ASA class is 2. The procedure was discussed in detail with the patient. Potential risks complications including infection, bleeding, missed diagnosis, perforation, need for surgery, and were explained. Their questions were answered and informed consent was obtained. Patient placed in left lateral decubitus position. Time out was performed. Procedural sedation was administered by Anesthesia. A bite block was placed. the scope was inserted into the mouth and advanced through the esophagus and into the stomach. the pylorus was intubated and the duodenum was examined to the 2nd portion.. The scope was retroflexed within the stomach. The stomach was then decompressed and scope pulled back to the GE junction. The scope was then removed Examination began with a thorough inspection of the perianal area there was no evidence of fissures, fistulae, external hemorrhoids or cutaneous malignancy. The colonoscopy scope was then placed into the anal canal and was advanced to the cecum, which was identified by the ileocecal valve, the appendiceal orifice and the confluence of the taenia. The scope was then slowly withdrawn examining colon thoroughly in all directions, irrigating it of any residual stool. FINDINGS -normal upper and lower endoscopy -no peptic ulcers, no polyps masses or inflammation. -internal hemorrhoids grade 1 The patient tolerated the procedure well. They will be discharged once criteria are met. The prep was of good/excellent quality. The withdrawl time was 7 minutes. Specimen(s): none sent Impression: Normal upper and lower endoscopy Post-procedure Recommendations: Colonscopy in 10 years Disposition: same day surgery
[2023-11-01 13:26] VITALS: BP 94/44; PULSE 94; RESP 16; TEMP 37.2; O2SAT 96
[2023-11-01 13:30] VITALS: BP 101/62; PULSE 88; RESP 14; TEMP 37.2; O2SAT 99
[2023-11-01 13:39] VITALS: BP 107/72; PULSE 89; RESP 17; TEMP 37.1; O2SAT 99
== END 2023-11-01 14:05 | disposition home or self-care (01) ==
PROVIDERS: PCP Nurse Practitioner Family; Referring Provider Surgery; Visit Provider Surgery
PROC: 0DJ08ZZ Inspection of Upper Intestinal Tract, Via Natural or Artificial Opening Endoscopic (ICD-10-PCS; CPT 43235; principal; 2023-11-01 13:15)
PROC: 0DJD8ZZ Inspection of Lower Intestinal Tract, Via Natural or Artificial Opening Endoscopic (ICD-10-PCS; CPT 45378; 2023-11-01 13:15)
DX: K92.2 Gastrointestinal hemorrhage, unspecified (principal); K64.0 First degree hemorrhoids
CPT/HCPCS: 45378; 43235; J2704

== ENCOUNTER → 2024-06-01 08:56 | Outpatient (CLI) | payer OTHER, SELFPAY ==
--- NOTE | 2024-06-01 | DI.US.S_ITS ---
LIMITED ULTRASOUND OF RIGHT BREAST AND AXILLA: 06/01/2024 CLINICAL: 6m/o fu rt breast cyst 05:00 2cmfn. Comparison is made to exams dated: 09/06/2023 ultrasound, 09/06/2023 mammogram, 01/07/2022 ultrasound, 01/07/2022 mammogram, 12/03/2021 mammogram, and 06/11/2020 mammogram - [facility]. Color flow and real-time ultrasound of the right breast 5 o'clock, and axilla regions were performed. Carmichael scale images of the real-time examination were reviewed. There is a stable benign 0.4 cm x 0.4 cm x 0.2 cm oval cyst in the right breast at 5 o'clock in the retroareolar region 2 cm from the nipple. This oval cyst displays internal echoes. This correlates with mammography findings. Color flow imaging demonstrates that there is no vascularity present. This lesion has not significantly changed when compared to prior exams dating back to 01/07/2022, and is therefore considered benign. No significant abnormalities were seen sonographically in the right axilla. IMPRESSION: BENIGN There is no sonographic evidence of malignancy. The stable 0.4 cm x 0.4 cm x 0.2 cm oval cyst in the right breast is consistent with a complicated cyst and is benign. Return to annual mammogram screening schedule is recommended. Patient is due for bilateral screening mammograms on 09/06/2024. This exam was interpreted at Station ID: [id number]. Electronically Signed By: Jeremias Urbano M.D. ar/:06/01/2024 15:48:52 letter sent: Normal Exam Ultrasound BI-RADS: 2 Benign
== END ==
LOC: MAMMO 08:57
PROVIDERS: PCP Nurse Practitioner Family; Referring Provider Nurse Practitioner Family; Visit Provider Nurse Practitioner Family
DX: R92.8 Other abnormal and inconclusive findings on diagnostic imaging of breast (principal); N60.01 Solitary cyst of right breast
CPT/HCPCS: 76642